=== PATIENT | male | born 1960 | race Caucasian/White ===

== ENCOUNTER 2022-09-10 08:04 | Inpatient (IN) | payer OTHER ==
[~2022-09-10] VITALS: Ht 177.8 cm; Wt 79.8 kg
[2022-09-10 08:51] LABS: BASOPHILS ABSOLUTE AUTO 0.06 K/mm3 (0.00-0.23); BASOPHILS PERCENT AUTO 1 % (0-2); EOSINOPHILS ABSOLUTE AUTO 0.16 K/mm3 (0.00-0.68); EOSINOPHILS PERCENT AUTO 2 % (0-6); Hematocrit 29.3 % (37.0-53.0); Hemoglobin 10.5 g/dL (13.5-17.5); IMMATURE GRAN ABSOLUTE AUTO 0.06 K/mm3 (0.00-0.10); IMMATURE GRAN PERCENT AUTO 1 % (0-1); LYMPHOCYTES ABSOLUTE AUTO 1.13 K/mm3 (0.84-5.20); LYMPHOCYTES PERCENT AUTO 11 % (21-46); MONOCYTES ABSOLUTE AUTO 1.63 K/mm3 (0.16-1.47); MONOCYTES PERCENT AUTO 16 % (4-13); Mean Corpuscular HGB 31.5 pg (26.0-34.0); Mean Corpuscular HGB Conc 35.8 g/dL (31.5-36.5); Mean Corpuscular Volume 88 fL (80-100); NEUTROPHILS ABSOLUTE AUTO 7.41 K/mm3 (1.96-9.15); NEUTROPHILS PERCENT AUTO 71 % (41-73); RDW Coefficient Variation 13.6 % (11.7-14.2); RDW Standard Deviation 43.4 fL (35.1-46.3); Red Blood Cell Count 3.33 M/mm3 (4.30-5.90); White Blood Cell Count 10.45 K/mm3 (4.00-11.30)
[2022-09-10 08:58] LABS: Ethanol (Alcohol), Blood, Med <3 mg/dL; Magnesium, Blood 2.1 mg/dL (1.6-2.4)
[2022-09-10 09:05] LABS: Alanine Aminotransfer (ALT/SGP 89 U/L (12-78); Albumin, Blood 3.1 g/dL (3.4-5.0); Albumin/Globulin Ratio 0.7 (0.8-1.8); Alk Phos 306 U/L (50-136); Anion Gap 9 mmol/L (6-16); Aspartate Aminotrans (AST/SGOT 207 U/L (12-37); Blood Urea Nitrogen 33 mg/dL (8-24); Bun/Creatinine Ratio 29.7 (12.0-20.0); CO2, Blood 31 mmol/L (21-32); Calcium, Blood 8.7 mg/dL (8.5-10.1); Chloride, Blood 94 mmol/L (98-108); Creatinine, Blood 1.11 mg/dL (0.60-1.20); Globulin, Blood 4.2 g/dL (2.2-4.0); Glomerular Filtration Rate 76 (60-); Glucose, Blood 131 mg/dL (70-99); Potassium, Blood 2.3 mmol/L (3.5-5.5); Sodium, Blood 134 mmol/L (136-145); Total Protein, Blood 7.3 g/dL (6.4-8.2)
[2022-09-10 09:13] LABS: Platelet Count 66 K/mm3 (150-400)
[2022-09-10] MEDS ORDERED: ATOR40TA PO (17:33)
[2022-09-10] MEDS ORDERED: CYCL10 PO (17:33)
[2022-09-10] MEDS ORDERED: OMEP20ER PO (17:34)
--- NOTE | 2022-09-10 17:35 | NUR ---
LATE ENTRY 1450: REPORT RECEIVED FROM ER NURSE JEAN. PT ARRIVED AT 1450 TO MEDICAL FLOOR VIA GURNEY. PT PLACED SELF IN BED WITH CLUMSY UNCOORDINATED MOVEMENTS. SEEMED UNSURE OF THE PHYSICAL ACTION REQUIRED TO COMPLETE THE TASK. MADE IT TO BED WITH ASSIST. MADE COMFORTABLE, ORIENTED TO ROOM AND UNIT ROUTINE. ADMIT COMPLETED. MEDS RECONCILED. PIV IN L AC IS POSITIONAL AND NOT INFUSING. STARTED A NEW PIV IN R FA WITH 20 G. K REPLACEMENT INFUSING INTO NEW PIV. BED ALARM ON, EDUCATION REGARDING FALL PREVENTION AND PT SAFETY GIVEN TO PT. WILL CONTINUE TO REINFORCE. RECEIVED CALL FROM ALVAREZ [facility] STAT[facility] PT HAS COMPLETED HIS ETOH WITHDRAWL WITH THEM AND HIS DC DISPOSITION WILL NOT BE BACK TO [place].
--- NOTE | 2022-09-10 18:12 | NUR ---
FLU VACCINE PT REPORTS HE ALREADY RECEIVED THE CURRENT FLU VACCINE.
--- NOTE | 2022-09-10 18:47 | NUR ---
SHIFT SUMMARY PT IS A&O X 3. SEEMS TO HAVE UNAWARENESS TO HIS MOBILITY LIMITATIONS. OVER ESTIMATES HIS ABILITY TO REMAIN SAFE, IS A FALL RISK. REMAINS UNCOORDINATED IN HIS PHYS ACTIONS. HAS LACK OF CONTROL OF HIS BODY. FOLLOWS DIRECTIONS.
--- NOTE | 2022-09-11 07:26 | NUR ---
CHAIN SPLITTER SUMMARY: A&Ox3. PLEASANT. UNCOOPERATIVE WITH CARE SECONDARY TO FORGETFULNESS. VERY UNCOORDINATED BODY MOVEMENTS AND IS A HIGH FALL RISK. BED ALARM ON. 1PA TO BEDSIDE COMMODE. GETS CONFUSED R/T TELE WIRES AND REQUESTS TO CUT THEM OFF D/T THEM BEING IN THE WAY. TELE RUNNING SINUS TACH WITH A RUN OF SVT LAST NIGHT. PT ASYMPTOMATIC. PROVIDER NOTIFIED WITH ORDERS TO CONTINUE TO MONITOR. LARGE BRUISES NOTED LEFT FLANK, RIGHT THIGH AND SCATTERED T/O. NO WITHDRAWL Sx NOTED. LAST K+ 3.0. WILL REPORT TO ONCOMING RN.
[2022-09-11 07:32] LABS: Bun/Creatinine Ratio 29.3 (12.0-20.0); Calcium, Blood 8.1 mg/dL (8.5-10.1); Creatinine, Blood 0.89 mg/dL (0.60-1.20); Magnesium, Blood 1.9 mg/dL (1.6-2.4); Potassium, Blood 2.5 mmol/L (3.5-5.5)
--- NOTE | 2022-09-11 20:14 | NUR ---
SUMMARY- PT A/O X4, HAS REGAINED STRENGTH, SPEECH HAS BECOME MORE CLEAR. THIS AM SOUNDED MORE SLURRED. KCL REPLACEMENT 40MEQ PO AND 60MEQ IV OVER 6 HOUR IN ADDITION TO 1GM MG. TELE ST WITH LONG QT- STAYING 0.[address] EMERY AWARE OF SVT RUNS AND CONT TO CHECK KCL AND REPLACEMENT NEEDED. PT IS NOW INDEPENDANT IN THE ROOM AND ORIENTED TO HIS LIMITS. TOLERATING FOOD AND FLUIDS. VOIDING AND HAD [employer] HARD STOOL TODAY. PLAN TO GO HOME TOMORROW, [facility] DELIVERY DRIVERS SUPERVISOR TO CALL AND SET UP TRANSPORT VIA [place]. REPORTED ALL TO NOC RN.
--- NOTE | 2022-09-12 06:14 | NUR ---
WARP TESTER SUMMARY: A&Ox3-4 WITH INTERMITTENT CONFUSION AND DIFFICULTY FINDING WORDS, BUT EASILY REDIRECTED AND CORRECTS HIMSELF WHEN ABLE. VOIDING AND STOOLING. SELF-AMBULATING WITHOUT ATAXIA; GAIT AND STRENGTH HAVE GREATLY IMPROVED SINCE YESTERDAY. LABS DRAWN THIS MORNING. NO ACUTE CONCERNS T/O THE NIGHT. PT ANTICIPATES DC THIS AM. WILL REPORT TO ONCOMING RN.
[2022-09-12 06:37] LABS: Bun/Creatinine Ratio 24.5 (12.0-20.0); Calcium, Blood 8.5 mg/dL (8.5-10.1); Creatinine, Blood 0.86 mg/dL (0.60-1.20); Magnesium, Blood 2.3 mg/dL (1.6-2.4); Potassium, Blood 3.5 mmol/L (3.5-5.5)
[2022-09-12] MEDS ORDERED: Hair, Skin & N1 EACH PO (10:47)
[2022-09-12] MEDS ORDERED: POTCHL20ER PO (10:48)
--- NOTE | 2022-09-12 13:07 | NUR ---
PT DISCHARGED 1130 WITH DC INSTRUCTIONS. [employer] BROUGHT HIS BELONGINGS AND HE WAS SENT HOME WITH ALL HIS BELONGINGS INCLUDING DUFFEL BAG AND SHOES. PT TRANSPORTED BY [facility] TO [place] VIA [place], WHEEL CHAIR ESCORT OUTSIDE
== END 2022-09-12 11:00 | disposition home or self-care (01) | DRG 641 ==
LOC: ER 08:04 → MEDS 08:05
PROVIDERS: Internal Medicine; Physician Assistant; ADMIT Internal Medicine
DX: E87.6 Hypokalemia (principal); I47.1 Supraventricular tachycardia; F10.10 Alcohol abuse, uncomplicated; F17.210 Nicotine dependence, cigarettes, uncomplicated
CPT/HCPCS: 36415; 71045; 80048; 80053; 83735; 84132; 85025; 93005; 93010; 96361; 96365; 96366; 96367; 99285-25; A9270; G0378; G0480; J3475; J3480; J7030; J7050